=== PATIENT | female | born 1930 | race Caucasian/White ===

== ENCOUNTER → 2016-05-29 | Outpatient (CLI) | payer MEDICARE, BC, OTHER ==
--- NOTE | 2016-05-30 08:53 | ECHOF ---
Referral Reason:Swelling Legs R22.42 I50.9 Heart failure, unspe MEASUREMENTS -------- HEIGHT: 167.6 cm WEIGHT: 63.5 kg BP: IVSd: 1.3 cm (0.6 - 1.1) LVIDd: 3.2 cm (3.9 - 5.3) LVPWd: 1.3 cm (0.6 - 1.1) IVSs: 1.8 cm LVIDs: 1.8 cm LVPWs: 1.6 cm LAESV Index (A-L): 25.25 ml/m Ao Diam: 2.9 cm (2.0 - 3.7) AV Cusp: 1.9 cm (1.5 - 2.6) LA Diam: 3.4 cm (2.7 - 3.8) MV EXCURSION: 14.881 mm (> 18.000) MV EF SLOPE: 40 mm/s (70 - 150) EPSS: 0.7 cm MV E Corey: 0.89 m/s MV DecT: 201 ms MV A Corey: 1.14 m/s MV E/A Ratio: 0.78 AR PHT: 162 ms RAP: 5.00 mmHg RVSP: 20.40 mmHg FINDINGS -------- Sinus rhythm. This was a technically good study. There is mild concentric left ventricular hypertrophy. Overall left ventricular systolic function is normal with, an EF between 55 - 60 %. The right ventricle is normal in size and function. The left atrium is normal in size. The right atrium is normal in size. Aortic valve is trileaflet and is mildly thickened. Trace amount of aortic regurgitation. The mitral valve leaflets are mildly thickened. Mild mitral regurgitation is present. Mild tricuspid regurgitation present. The right ventricular systolic pressure, as measured by Doppler, is 20.40mmHg. Pulmonic valve appears structurally normal. The aortic root size is normal. The pericardium is normal. CONCLUSIONS -------- 1. Sinus rhythm. 2. The mitral valve leaflets are mildly thickened. 3. Mild mitral regurgitation is present. 4. Mild tricuspid regurgitation present. 5. The right ventricular systolic pressure, as measured by Doppler, is 20.40mmHg. 6. Pulmonic valve appears structurally normal. 7. The aortic root size is normal. 8. The pericardium is normal. 9. This was a technically good study. 10. There is mild concentric left ventricular hypertrophy. 11. Overall left ventricular systolic function is normal with, an EF between 55 - 60 %. 12. The right ventricle is normal in size and function. 13. The left atrium is normal in size. 14. The right atrium is normal in size. 15. Aortic valve is trileaflet and is mildly thickened. 16. Trace amount of aortic regurgitation. CLAIMS ANALYST: Radha Ochoa RDCS
== END | disposition home or self-care (01) ==
LOC: RADECHMAIN 13:24
PROVIDERS: ATTEND Internal Medicine
DX: I08.1 Rheumatic disorders of both mitral and tricuspid valves (principal); I50.9 Heart failure, unspecified; Z88.1 Allergy status to other antibiotic agents; Z88.5 Allergy status to narcotic agent; Z88.8 Allergy status to other drugs, medicaments and biological substances
CPT/HCPCS: 93306

== ENCOUNTER 2016-10-26 11:22 | Emergency (ER) | payer MEDICARE, BC, OTHER ==
[2016-10-26 11:31] VITALS: RESP 18
--- NOTE | 2016-10-26 12:05 | ED ---
General Adult HPI - General Chief complaint: Syncope Stated complaint: near syncope Time Seen by Provider: 10/26/16 11:27 Source: patient, RN notes reviewed, old records reviewed Mode of arrival: ambulatory Limitations: no limitations - History of Present Illness Initial comments: This is an 86-year-old female ER for evaluation. Patient is here for evaluation of the patient is getting her hair done and became mildly unresponsive. No change of color, no loss of pulse. Patient has had syncopal close the past but none recently. No headache or chest pain or distress of breath no abdominal pain. Patient is currently asymptomatic, feels well. - Related Data Home Medications Medication Instructions Recorded Confirmed Cholecalciferol [Vitamin D3] 1 tab PO DAILY 07/05/15 10/26/16 Ascorbic Acid [Vitamin C] 500 mg PO DAILY 10/26/16 10/26/16 Cyanocobalamin (Vitamin B-12) 2,500 mcg PO DAILY 10/26/16 10/26/16 [Vitamin B12] DULoxetine HCL [Cymbalta] 30 mg PO BID 10/26/16 10/26/16 Fexofenadine HCl [Hanna Allergy] 180 mg PO DAILY 10/26/16 10/26/16 Folic Acid [Folic Acid] 1 mg PO DAILY 10/26/16 10/26/16 Methotrexate Sodium [Methotrexate] 12.5 mg PO FR 10/26/16 10/26/16 Pyridoxine HCl (Vitamin B6) 100 mg PO DAILY 10/26/16 10/26/16 [Vitamin B-6] Allergies Allergy/AdvReac Type Severity Reaction Status Date / Time No Known Allergies Allergy Verified 10/26/16 11:49 Review of Systems ROS Statement: Those systems with pertinent positive or pertinent negative responses have been documented in the HPI. ROS Other: All systems not noted in ROS Statement are negative. Past Medical History Past Medical History: Rheumatoid Arthritis (RA) Additional Past Medical History / Comment(s): [place] History of Any Multi-Drug Resistant Organisms: None Reported Past Surgical History: No Surgical Hx Reported Past Psychological History: No Psychological Hx Reported Smoking Status: Never smoker Past Alcohol Use History: None Reported Past Drug Use History: None Reported General Exam Limitations: no limitations General appearance: alert, in no apparent distress Head exam: Present: atraumatic, normocephalic, normal inspection Eye exam: Present: normal appearance, PERRL, EOMI. Absent: scleral icterus, conjunctival injection, periorbital swelling ENT exam: Present: normal exam, mucous membranes moist Neck exam: Present: normal inspection. Absent: tenderness, meningismus, lymphadenopathy Respiratory exam: Present: normal lung sounds bilaterally. Absent: respiratory distress, wheezes, rales, rhonchi, stridor Cardiovascular Exam: Present: regular rate, normal rhythm, normal heart sounds. Absent: systolic murmur, diastolic murmur, rubs, gallop, clicks GI/Abdominal exam: Present: soft, normal bowel sounds. Absent: distended, tenderness, guarding, rebound, rigid Extremities exam: Present: normal inspection, full ROM, normal capillary refill. Absent: tenderness, pedal edema, joint swelling, calf tenderness Back exam: Present: normal inspection Neurological exam: Present: alert, oriented X3, CN II-XII intact Psychiatric exam: Present: normal affect, normal mood Skin exam: Present: warm, dry, intact, normal color. Absent: rash Course Vital Signs 10/26/16 11:24 Temperature 98.8 F Pulse Rate 55 L Respiratory 18 Rate Blood Pressure 166/79 O2 Sat by Pulse 98 Oximetry - Reevaluation(s) Reevaluation #1: 10/26/16 13:07 Patient is without syncope here in the ER, no complaints EKG Findings - EKG Comments: EKG Findings:: EKG shows sinus bradycardia rate of 54, MA 126, QRS 80, QTC 413 Medical Decision Making - Medical Decision Making 86 female here for evaluation of syncope versus near syncopal event. Patient lab work is normal, no headache no chest pain or shortness of breath no bowel pain. Patient can be discharged home - Lab Data Result diagrams: 10/26/16 11:38 Lab Results 10/26/16 10/26/16 Range/Units 11:38 11:38 WBC 4.0 (3.8-10.6) k/uL RBC 4.42 (3.80-5.40) m/uL Hgb 12.8 (11.4-16.0) gm/dL Hct 39.1 (34.0-46.0) % MCV 88.5 (80.0-100.0) fL MCH 29.0 (25.0-35.0) pg MCHC 32.8 (31.0-37.0) g/dL RDW 15.7 H (11.5-15.5) % Plt Count 160 (150-450) k/uL Neutrophils % 58 % Lymphocytes % 29 % Monocytes % 7 % Eosinophils % 1 % Basophils % 1 % Neutrophils # 2.3 (1.3-7.7) k/uL Lymphocytes # 1.2 (1.0-4.8) k/uL Monocytes # 0.3 (0-1.0) k/uL Eosinophils # 0.1 (0-0.7) k/uL Basophils # 0.0 (0-0.2) k/uL PT 10.7 (9.0-12.0) sec INR 1.1 (<1.2) APTT 23.7 (22.0-30.0) sec D-Dimer 0.43 (<0.60) mg/L FEU - Radiology Data Radiology results: report reviewed (Chest x-ray is negative for acute disease), image reviewed Disposition Clinical Impression: Vasovagal syncope, Syncope Disposition: HOME SELF-CARE Condition: Good Instructions: Syncope (ED) Referrals: Kait Pettit MD [Primary Care Provider] - 1-2 days
[2016-10-26] MEDS ORDERED: SODIUM CHLORIDE 0.9% 1,000 ML IV STA (12:11)
[2016-10-26 12:24] LABS: Basophils % (A) 1 %; CH 29.4; CHCM 33.4; Eosinophils # (A) 0.1 k/uL (0-0.7); Eosinophils % (A) 1 %; HCT 39.1 % (34.0-46.0); HDW 2.88; HGB 12.8 gm/dL (11.4-16.0); Luc # (Auto) 0.17; Luc % (Auto) 4; Lymphocytes # (A) 1.2 k/uL (1.0-4.8); Lymphocytes % (A) 29 %; MCHC 32.8 g/dL (31.0-37.0); MCV 88.5 fL (80.0-100.0); Mean Platelet Volume 8.9; Monocytes # (A) 0.3 k/uL (0-1.0); Monocytes % (A) 7 %; Neutrophils # (A) 2.3 k/uL (1.3-7.7); Neutrophils % (A) 58 %; RBC 4.42 m/uL (3.80-5.40); RDW 15.7 % (11.5-15.5); WBC (Perox) 3.92
--- NOTE | 2016-10-26 12:32 | XR ---
EXAMINATION TYPE: XR chest 2V DATE OF EXAM: 10/26/2016 COMPARISON: NONE TECHNIQUE: PA and lateral views submitted. HISTORY: Weakness FINDINGS: The lungs are clear and there is no pneumothorax, pleural effusion, or focal pneumonia. Diffuse hyp erinflation noted. Diffuse osteopenia and arthropathy shoulders. Degenerative change of the spine. IMPRESSION: 1. No acute process. Correlate for COPD.
[2016-10-26 12:45] LABS: INR 1.1 (<1.2); Partial Thromboplastin Time 23.7 sec (22.0-30.0); Prothrombin Time 10.7 sec (9.0-12.0)
[2016-10-26 13:09] LABS: Creatine Kinase 53 U/L (30-135)
[2016-10-26 13:20] LABS: Creatine Kinase MB 1.5 ng/mL (0.0-2.4); Troponin I <0.012 ng/mL (0.000-0.034)
[2016-10-26 13:21] LABS: ALT 22 U/L (9-52); AST 39 U/L (14-36); Alkaline Phosphatase 97 U/L (38-126); Anion Gap 10 mmol/L; Blood Urea Nitrogen 14 mg/dL (7-17); Calcium 9.4 mg/dL (8.4-10.2); Carbon Dioxide 23 mmol/L (22-30); Chloride 102 mmol/L (98-107); Glucose 97 mg/dL (74-99); Magnesium 1.8 mg/dL (1.6-2.3); Non-African American GFR(MDRD) >60 (>60 ml/min/1.73 sqM); Phosphorous 4.1 mg/dL (2.5-4.5); Sodium 135 mmol/L (137-145); Total Bilirubin 0.5 mg/dL (0.2-1.3); Total Protein 7.2 g/dL (6.3-8.2)
[2016-10-26 13:34] LABS: Potassium 4.3 mmol/L (3.5-5.1)
[2016-10-26 14:19] VITALS: BP 176/80; PULSE 61; TEMP 98.2
== END 2016-10-26 14:35 | disposition home or self-care (01) ==
LOC: EC 11:22
DX: R55 Syncope and collapse (principal); M06.9 Rheumatoid arthritis, unspecified; Z79.899 Other long term (current) drug therapy
CPT/HCPCS: 36415; 71020; 80053; 82550; 82553; 83735; 84100; 84443; 84484; 85025; 85379; 85610; 85730; 96360; 99284

== ENCOUNTER → 2017-05-27 | Outpatient (CLI) | payer MEDICARE, BC, OTHER ==
--- NOTE | 2017-05-27 12:47 | US ---
EXAMINATION TYPE: US venous doppler duplex LE DATE OF EXAM: 05/27/2017 12:30 PM COMPARISON: NONE CLINICAL HISTORY: M79.622 M79.661 PAIN KIRK LOWER LIMBS,R22.42 R2241 SWELLING. Patient had difficulty adducting her legs. SIDE PERFORMED: Bilateral TECHNIQUE: The lower extremity deep venous system is examined utilizing real time linear array sonog olive with graded compression, doppler sonography and color-flow sonography. VESSELS IMAGED: External Iliac Vein (EIV) Common Femoral Vein Deep Femoral Vein Greater Saphenous Vein * Femoral Vein Popliteal Vein Small Saphenous Vein * Proximal Calf Veins (* superficial vessels) Right Leg: Negative for DVT Left Leg: Negative for DVT Grayscale, color doppler, spectral doppler imaging performed of the deep veins of the bilateral lower extremities. There is normal flow, compressibility, and vascular waveforms. IMPRESSION: No ultrasound evidence for acute DVT in bilateral lower extremities.
== END | disposition home or self-care (01) ==
LOC: RADUSWWP 11:48
PROVIDERS: ATTEND Internal Medicine
DX: R22.43 Localized swelling, mass and lump, lower limb, bilateral (principal); M79.662 Pain in left lower leg; M79.661 Pain in right lower leg
CPT/HCPCS: 93970

== ENCOUNTER → 2017-09-24 | Outpatient (CLI) | payer MEDICARE, BC, OTHER ==
--- NOTE | 2017-09-24 08:50 | US ---
EXAMINATION TYPE: US abdomen limited DATE OF EXAM: 09/24/2017 COMPARISON: NONE CLINICAL HISTORY: R16.1 splenomegaly. EXAM MEASUREMENTS: Spleen: 13.3 cm Left Kidney: 9.9 x 2.9 x 3.7 cm 1. Spleen: upper limits of normal. Solitary cystic 0.9 x 0.7 x 0.8 cm splenic lesion is seen with inc reased through transmission and no vascularity. 2. Left Kidney: no hydro or masses seen IMPRESSION: Spleen is upper limits of normal in size and contains a solitary cystic subcentimeter les ion, highly favored to be benign
== END | disposition home or self-care (01) ==
LOC: RADUSWWP 08:10
PROVIDERS: ATTEND Internal Medicine Hematology & Oncology
DX: D73.4 Cyst of spleen (principal)
CPT/HCPCS: 76705

== ENCOUNTER 2017-10-12 06:42 | Day surgery (SDC) | payer MEDICARE, BC, OTHER ==
[2017-10-07 10:05] VITALS: BMI 23.7
[~2017-10-12 06:42] MED LIST: LACTATED RINGERS 1,000 ML IV SCH; LIDOCAINE 1% 20 ML VIAL (10MG/ML) FOR IV START INTRADERMA PRN; MIDAZOLAM 2 MG/2 ML VIAL IV PRN
[2017-10-12 07:19] VITALS: TEMP 98.4
[2017-10-12] MEDS ORDERED: PROPOFOL 10 MG/ML 20 ML VIAL IV ONE (07:28)
[2017-10-12] MEDS ORDERED: LIDOCAINE 1% INJ 10MG/ML (20 ML MDV) ONE (07:28)
[2017-10-12 08:15] LABS: HCT 37.6 % (34.0-46.0); HGB 12.2 gm/dL (11.4-16.0); MCH 25.4 pg (25.0-35.0); MCHC 32.5 g/dL (31.0-37.0); MCV 78.2 fL (80.0-100.0); Mean Platelet Volume 8.5; Platelet Count 145 k/uL (150-450); RDW 14.7 % (11.5-15.5)
[2017-10-12 08:18] LABS: WBC 1.9 k/uL (3.8-10.6)
[2017-10-12 08:22] VITALS: BP 164/80; PULSE 53; RESP 18
--- NOTE | 2017-10-12 08:58 | PCN ---
PROCEDURE NOTE DATE OF PROCEDURE: 10/12/2017. PREOPERATIVE DIAGNOSIS: Leukopenia. POSTOPERATIVE DIAGNOSIS: Leukopenia. ANESTHESIA: Local with IV systemic sedation. DETAILS: Utilizing sterile technique, the skin overlying the right iliac crest was prepared with Betadine and alcohol. After adequate sterile draping, systemic sedation and local anesthesia with 1% lidocaine, a size 11, 4-inch BURLESQUICEOUSshidi needle was utilized to access the periosteum with ease. A total of 16 mL of aspirate and crushed 4 mm bone core biopsies were obtained. The patient tolerated the procedure well. There was no immediate procedure related complication. TOTAL BLOOD LOSS: Less than 1 mL. RESULTS: Pending. MMODL / IJN: [id number] /
[2017-10-12 09:44] LABS: Anisocytosis (M) Present; Lymphocytes # (M) 0.78 k/uL (1.0-4.8); Monocytes # (M) 0.27 k/uL (0-1.0); Neutrophils # (M) 0.86 k/uL (1.3-7.7); Neutrophils % (M) 45 %; Nucleated Red Blood Cells 0 /100 WBC (0-0); Poikilocytosis (M) Present; Total Cells Counted 100
== END 2017-10-12 08:28 | disposition home or self-care (01) ==
LOC: OR 06:42
PROVIDERS: ATTEND Internal Medicine Hematology & Oncology
DX: D70.9 Neutropenia, unspecified (principal); D72.810 Lymphocytopenia; D47.3 Essential (hemorrhagic) thrombocythemia; M06.9 Rheumatoid arthritis, unspecified; Z87.891 Personal history of nicotine dependence; Z09 Encounter for follow-up examination after completed treatment for conditions other than malignant neoplasm; Z88.8 Allergy status to other drugs, medicaments and biological substances
CPT/HCPCS: 85025; 38222; J2001; J2704

== ENCOUNTER 2018-03-21 22:17 | Emergency (ER) | payer MEDICARE, BC, OTHER ==
[2018-03-21 22:26] VITALS: RESP 16
[2018-03-21] MEDS ORDERED: ACETAMINOPHEN TAB 325 MG TAB PO STA (23:28)
--- NOTE | 2018-03-22 00:40 | XR ---
EXAMINATION TYPE: XR ankle complete LT DATE OF EXAM: 03/21/2018 COMPARISON: NONE HISTORY: Ankle pain TECHNIQUE: 3 views FINDINGS: Ankle mortise is anatomic. There is moderate plantar and Achilles calcaneal spur formation. I see no definite fracture nor dislocation. There are some mild spurring at the distal fibula. IMPRESSION: No acute bony abnormality.
--- NOTE | 2018-03-22 00:52 | XR ---
EXAMINATION TYPE: XR foot complete LT DATE OF EXAM: 03/21/2018 COMPARISON: NONE HISTORY: Foot pain TECHNIQUE: 3 views FINDINGS: There are moderate plantar and Achilles calcaneal spurs. Metatarsals are intact. I see no f racture nor dislocation. There are no erosions. IMPRESSION: Calcaneal spurring. No fracture seen.
--- NOTE | 2018-03-22 01:13 | ED ---
Fall HPI - General Chief Complaint: Fall Stated Complaint: Fall, ankle pain Time Seen by Provider: 03/21/18 23:01 Source: patient, family Mode of arrival: wheelchair - History of Present Illness Initial Comments: 87-year-old female patient presents to the emergency department today for evaluation of left foot and ankle pain. Patient states around 9:30 this evening she was stepping down into her living room where there are 3 stairs. Patient states she has rheumatoid arthritis and occasionally has difficulty navigating stairs. Patient states that she tripped on the last one twisting the left ankle. States that she did fall landing on her left side. She denies hitting her head or losing consciousness during the fall. She denies any injury to the hip or elbow. States that she did have increased pain while standing on the foot. She denies any numbness or tingling to the foot. Denies any previous injury to the foot. Patient denies any headache, neck pain, back pain, chest pain, shortness of breath, dizziness, weakness, abdominal pain, nausea, vomiting, or difficulties with bowel movements or urination. - Related Data Home Medications Medication Instructions Recorded Confirmed Ascorbic Acid [Vitamin C] 500 mg PO DAILY 10/26/16 03/21/18 Cyanocobalamin (Vitamin B-12) 2,500 mcg PO DAILY 10/26/16 03/21/18 [Vitamin B12] Folic Acid 1 mg PO DAILY 10/26/16 03/21/18 Pyridoxine HCl (Vitamin B6) 100 mg PO DAILY 10/26/16 03/21/18 [Vitamin B-6] Calcium Carbonate [Calcium] 600 mg PO DAILY 10/07/17 03/21/18 Cholecalciferol [Vitamin D3] 1,000 unit PO DAILY 10/07/17 03/21/18 Acetaminophen [Tylenol Arthritis] 650 mg PO DAILY PRN 03/21/18 03/21/18 DULoxetine HCL [Cymbalta] 30 mg PO HS 03/21/18 03/21/18 Allergies Allergy/AdvReac Type Severity Reaction Status Date / Time fexofenadine [From Hanna] Allergy fainting Verified 03/21/18 23:20 Review of Systems ROS Statement: Those systems with pertinent positive or pertinent negative responses have been documented in the HPI. ROS Other: All systems not noted in ROS Statement are negative. Past Medical History Past Medical History: Rheumatoid Arthritis (RA) Additional Past Medical History / Comment(s): [place],"immune system low", hx previous injury to right wrist, has "bladder ring" pessary History of Any Multi-Drug Resistant Organisms: None Reported Past Surgical History: Appendectomy Past Anesthesia/Blood Transfusion Reactions: No Reported Reaction Past Psychological History: Anxiety, Depression Smoking Status: Never smoker Past Alcohol Use History: None Reported Past Drug Use History: None Reported - Past Family History Mother Family Medical History: No Reported History General Exam Limitations: no limitations General appearance: alert, in no apparent distress, other (Physical well- developed, well-nourished elderly female patient in no acute distress. Vital signs upon presentation are temperature 98.0F, pulse 64, respirations 16, blood pressure 167/84, pulse ox 98% on room air.) Eye exam: Present: normal appearance, PERRL, EOMI. Absent: scleral icterus, conjunctival injection, periorbital swelling ENT exam: Present: normal exam, normal oropharynx, mucous membranes moist Neck exam: Present: normal inspection, full ROM, other (Nontender, no step-off, no deformity to firm midline palpation of the posterior cervical spine. Full range of motion without pain or limitation.). Absent: tenderness, meningismus, lymphadenopathy Respiratory exam: Present: normal lung sounds bilaterally. Absent: respiratory distress, wheezes, rales, rhonchi, stridor Cardiovascular Exam: Present: regular rate, normal rhythm, normal heart sounds. Absent: systolic murmur, diastolic murmur, rubs, gallop, clicks GI/Abdominal exam: Present: soft, normal bowel sounds. Absent: distended, tenderness, guarding, rebound, rigid Extremities exam: Present: full ROM, tenderness (Tenderness to the left foot over the fifth metatarsal, mild tenderness or on the left lateral malleolus), normal capillary refill, other (Skin to the left foot is pink, warm, and dry. Cap refills less than 3 seconds. Pedal posttibial pulses are 2+ and equal bilaterally. No soft tissue swelling noted.). Absent: normal inspection, pedal edema, joint swelling, calf tenderness Back exam: Present: normal inspection, other (Nontender, no step-off, no deformity to firm midline palpation of the thoracic and lumbar vertebrae. Full range of motion without pain or limitation.). Absent: vertebral tenderness Neurological exam: Present: alert, oriented X3, CN II-XII intact Psychiatric exam: Present: normal affect, normal mood Skin exam: Present: warm, dry, intact, normal color. Absent: rash Course Vital Signs 03/21/18 03/22/18 22:21 01:36 Temperature 98 F 97.8 F Pulse Rate 64 52 L Respiratory 16 16 Rate Blood Pressure 167/84 169/93 O2 Sat by Pulse 98 95 Oximetry Medical Decision Making - Medical Decision Making 87-year-old female patient presents to the emergency department today for evaluation of left foot pain after experiencing a chipped down a couple stairs. Physical examination did reveal some tenderness over the left fifth metatarsal and the left lateral malleolus. Remainder of findings were unremarkable. X-ray of the left foot and ankle were obtained and showed no acute abnormalities. Return parameters were discussed in detail. He verbalizes understanding and agrees with this plan. - Radiology Data Radiology results: report reviewed, image reviewed 3 views of the left foot are obtained. Report was reviewed in its entirety. Impression by Dr. Forbes shows calcaneal spurring. No fracture seen. 3 views of the left ankle are obtained. Report was reviewed in its entirety. Impression by Dr. Forbes shows no acute bony abnormality. Disposition Clinical Impression: Sprain of left foot Disposition: HOME SELF-CARE Condition: Good Instructions (If sedation given, give patient instructions): Foot Sprain (ED) Additional Instructions: Rest, ice, elevate the foot. Use Joe wrap for comfort and support. Follow-up with the primary care physician for recheck in 1-2 days. Have repeat x-rays performed in 7-10 days if pain symptoms persist. Return immediately for any new , worsening, or concerning symptoms Is patient prescribed a controlled substance at d/c from ED?: No Referrals: Kait Pettit MD [Primary Care Provider] - 1-2 days Time of Disposition: 01:12
[2018-03-22 01:44] VITALS: BP 169/93; PULSE 52; TEMP 97.8
== END 2018-03-22 01:43 | disposition home or self-care (01) ==
LOC: EC 22:17
DX: S93.602A Unspecified sprain of left foot, initial encounter (principal); M77.32 Calcaneal spur, left foot; F41.9 Anxiety disorder, unspecified; F32.9 Major depressive disorder, single episode, unspecified; Z79.899 Other long term (current) drug therapy; Z88.8 Allergy status to other drugs, medicaments and biological substances; W10.9XXA Fall (on) (from) unspecified stairs and steps, initial encounter; Y92.009 Unspecified place in unspecified non-institutional (private) residence as the place of occurrence of the external cause
CPT/HCPCS: 99283

== ENCOUNTER 2019-08-17 07:55 | Inpatient (IN) | payer MEDICARE, BC, OTHER ==
[2019-08-17] MEDS ORDERED: SODIUM CHLORIDE 0.9% 500 ML 500 ML IV STA (08:12)
--- NOTE | 2019-08-17 08:16 | ED ---
General Adult HPI - General Chief complaint: Dizziness Stated complaint: Dizziness Time Seen by Provider: 08/17/19 07:57 Source: patient, EMS, RN notes reviewed Mode of arrival: EMS Limitations: no limitations - History of Present Illness Initial comments: Patient is a pleasant 89-year-old female presenting to the emergency Department with lightheadedness. Onset of symptoms was when she got out of bed this morning. Patient felt very lightheaded. Patient use the restroom and still felt lightheaded. Patient states symptoms have significant family improved and are essentially resolved at this time. Patient states she did have episode briefly yesterday. Patient denies any spinning type sensation. No confusion or speech problems. No isolated area of weakness. No coordination difficulty. - Related Data Home Medications Medication Instructions Recorded Confirmed Ascorbic Acid [Vitamin C] 500 mg PO DAILY 10/26/16 03/21/18 Cyanocobalamin (Vitamin B-12) 2,500 mcg PO DAILY 10/26/16 03/21/18 [Vitamin B12] Folic Acid 1 mg PO DAILY 10/26/16 03/21/18 Pyridoxine HCl (Vitamin B6) 100 mg PO DAILY 10/26/16 03/21/18 [Vitamin B-6] Calcium Carbonate [Calcium] 600 mg PO DAILY 10/07/17 03/21/18 Cholecalciferol [Vitamin D3] 1,000 unit PO DAILY 10/07/17 03/21/18 Acetaminophen [Tylenol Arthritis] 650 mg PO DAILY PRN 03/21/18 03/21/18 DULoxetine HCL [Cymbalta] 30 mg PO HS 03/21/18 03/21/18 Allergies Allergy/AdvReac Type Severity Reaction Status Date / Time fexofenadine [From Hnana] Allergy fainting Verified 03/21/18 23:20 Review of Systems ROS Statement: Those systems with pertinent positive or pertinent negative responses have been documented in the HPI. ROS Other: All systems not noted in ROS Statement are negative. Constitutional: Denies: fever Eyes: Denies: eye pain ENT: Denies: ear pain Respiratory: Denies: cough Cardiovascular: Denies: chest pain Endocrine: Denies: fatigue Gastrointestinal: Denies: abdominal pain Genitourinary: Denies: dysuria Musculoskeletal: Denies: back pain Neurological: Denies: headache, weakness, confusion Past Medical History Past Medical History: Rheumatoid Arthritis (RA) Additional Past Medical History / Comment(s): [place],"immune system low", hx previous injury to right wrist, has "bladder ring" pessary History of Any Multi-Drug Resistant Organisms: None Reported Past Surgical History: Appendectomy Past Anesthesia/Blood Transfusion Reactions: No Reported Reaction Past Psychological History: Anxiety, Depression Smoking Status: Never smoker Past Alcohol Use History: None Reported Past Drug Use History: None Reported - Past Family History Mother Family Medical History: No Reported History General Exam Limitations: no limitations General appearance: alert, in no apparent distress Head exam: Present: atraumatic, normocephalic Eye exam: Present: normal appearance, PERRL, EOMI. Absent: nystagmus ENT exam: Present: normal oropharynx, TM's normal bilaterally Neck exam: Present: normal inspection Respiratory exam: Present: normal lung sounds bilaterally Cardiovascular Exam: Present: regular rate, normal rhythm GI/Abdominal exam: Present: soft. Absent: tenderness Extremities exam: Present: normal inspection Neurological exam: Present: alert, oriented X3, CN II-XII intact. Absent: motor sensory deficit Expanded Neurological exam: Present: protecting the airway Patient oriented to: Present: person, place, time Speech: Present: fluid speech Cranial nerves: EOM's Intact: Normal Motor strength exam: RUE: 5, LUE: 5, RLE: 5, LLE: 5 Eye Response: (4) open spontaneously Motor Response: (6) obeys commands Verbal Response: (5) oriented Psychiatric exam: Present: normal affect, normal mood Skin exam: Present: normal color Course Vital Signs 08/17/19 08/17/19 08/17/19 07:59 09:43 10:06 Temperature 98.3 F Pulse Rate 64 58 L Pulse Rate [ 61 Right Sitting] Pulse Rate [ 66 Right Standing] Pulse Rate [ 58 L Right Supine] Respiratory 20 18 18 Rate Blood Pressure 177/93 153/82 Blood Pressure 175/97 [Left Arm Sitting] Blood Pressure 192/97 [Left Arm Standing] Blood Pressure 156/83 [Left Arm Supine] O2 Sat by Pulse 96 97 97 Oximetry 08/17/19 11:10 Temperature Pulse Rate 56 L Pulse Rate [ Right Sitting] Pulse Rate [ Right Standing] Pulse Rate [ Right Supine] Respiratory 14 Rate Blood Pressure 130/67 Blood Pressure [Left Arm Sitting] Blood Pressure [Left Arm Standing] Blood Pressure [Left Arm Supine] O2 Sat by Pulse 96 Oximetry EKG Findings - EKG Comments: EKG Findings:: Sinus rhythm at 60. RI 128. QRS 70. QT 424. QTC 424. Normal axis. Normal QRS. Nonspecific ST-T. Medical Decision Making - Medical Decision Making Patient still symptomatic with getting up. Patient does not feel comfortable with discharge home. Patient updated on results and plan. Case was discussed with Dr. Donald, who will admit covering for Dr. sandoval - Lab Data Result diagrams: 08/17/19 08:05 08/17/19 08:05 Lab Results 08/17/19 08/17/19 08/17/19 Range/Units 08:05 08:05 10:23 WBC 2.1 L (3.8-10.6) k/uL RBC 4.44 (3.80-5.40) m/uL Hgb 13.0 (11.4-16.0) gm/dL Hct 37.8 (34.0-46.0) % MCV 85.1 (80.0-100.0) fL MCH 29.2 (25.0-35.0) pg MCHC 34.3 (31.0-37.0) g/dL RDW 13.8 (11.5-15.5) % Plt Count 124 L (150-450) k/uL Neutrophils % (Manual) 41 % Lymphocytes % (Manual) 44 % Monocytes % (Manual) 13 % Eosinophils % (Manual) 1 % Basophils % (Manual) 1 % Neutrophils # (Manual) 0.86 L (1.3-7.7) k/uL Lymphocytes # (Manual) 0.92 L (1.0-4.8) k/uL Monocytes # (Manual) 0.27 (0-1.0) k/uL Eosinophils # (Manual) 0.02 (0-0.7) k/uL Basophils # (Manual) 0.02 (0-0.2) k/uL Nucleated RBCs 0 (0-0) /100 WBC Manual Slide Review Performed Sodium 139 (137-145) mmol/L Potassium 3.6 (3.5-5.1) mmol/L Chloride 106 (98-107) mmol/L Carbon Dioxide 27 (22-30) mmol/L Anion Gap 6 mmol/L BUN 19 H (7-17) mg/dL Creatinine 0.67 (0.52-1.04) mg/dL Est GFR (CKD-EPI)AfAm >90 (>60 ml/min/1.73 sqM) Est GFR (CKD-EPI)NonAf 79 (>60 ml/min/1.73 sqM) Glucose 93 (74-99) mg/dL Calcium 9.1 (8.4-10.2) mg/dL Total Bilirubin 0.4 (0.2-1.3) mg/dL AST 24 (14-36) U/L ALT 9 (4-34) U/L Alkaline Phosphatase 73 (38-126) U/L Total Protein 7.0 (6.3-8.2) g/dL Albumin 3.7 (3.5-5.0) g/dL Urine Color Light Yellow Urine Appearance Cloudy H (Clear) Urine pH 7.0 (5.0-8.0) Ur Specific [place] 1.011 (1.001-1.035) Urine Protein Negative (Negative) Urine Glucose (UA) Negative (Negative) Urine Ketones Negative (Negative) Urine Blood Small H (Negative) Urine Nitrite Negative (Negative) Urine Bilirubin Negative (Negative) Urine Urobilinogen <2.0 (<2.0) mg/dL Ur Leukocyte Esterase Small H (Negative) Urine RBC 10 H (0-5) /hpf Urine WBC 9 H (0-5) /hpf Ur Squamous Epith Cells 45 H (0-4) /hpf Urine Bacteria Moderate H (None) /hpf Urine Mucus Rare H (None) /hpf Disposition Clinical Impression: Near syncope Disposition: ADMITTED IP TO THIS HOSP Is patient prescribed a controlled substance at d/c from ED?: No Referrals: Kait Pettit MD [Primary Care Provider] - 1-2 days Decision Time: 11:56
[2019-08-17 08:34] LABS: HCT 37.8 % (34.0-46.0); MCH 29.2 pg (25.0-35.0); MCHC 34.3 g/dL (31.0-37.0); MCV 85.1 fL (80.0-100.0); Mean Platelet Volume 8.2; Platelet Count 124 k/uL (150-450); RBC 4.44 m/uL (3.80-5.40); RDW 13.8 % (11.5-15.5); WBC 2.1 k/uL (3.8-10.6)
[2019-08-17 08:36] LABS: ALT 9 U/L (4-34); AST 24 U/L (14-36); African American GFR (CKD) >90 (>60 ml/min/1.73 sqM); Albumin 3.7 g/dL (3.5-5.0); Alkaline Phosphatase 73 U/L (38-126); Anion Gap 6 mmol/L; Blood Urea Nitrogen 19 mg/dL (7-17); Calcium 9.1 mg/dL (8.4-10.2); Carbon Dioxide 27 mmol/L (22-30); Chloride 106 mmol/L (98-107); Glucose 93 mg/dL (74-99); Non-African American GFR(CKD) 79 (>60 ml/min/1.73 sqM); Potassium 3.6 mmol/L (3.5-5.1); Sodium 139 mmol/L (137-145); Total Bilirubin 0.4 mg/dL (0.2-1.3)
[2019-08-17 09:16] LABS: Basophils # (M) 0.02 k/uL (0-0.2); Eosinophils # (M) 0.02 k/uL (0-0.7); Lymphocytes # (M) 0.92 k/uL (1.0-4.8); Monocytes # (M) 0.27 k/uL (0-1.0); Neutrophils # (M) 0.86 k/uL (1.3-7.7); Neutrophils % (M) 41 %; Nucleated Red Blood Cells 0 /100 WBC (0-0); Total Cells Counted 100
[2019-08-17 10:48] LABS: Appearance,Urine Cloudy (Clear); Bacteria,Urine Moderate /hpf; Bilirubin,Urine Negative (Negative); Blood,Urine Small (Negative); Color,Urine Light Yellow; Glucose,Urine (UA) Negative (Negative); Ketones,Urine Negative (Negative); Leukocyte Esterase,Urine Small (Negative); Mucus,Urine Rare /hpf; Nitrite,Urine Negative (Negative); Protein,Urine Negative (Negative); RBC,Urine 10 /hpf (0-5); Specific Gravity,Urine 1.011 (1.001-1.035); Squamous Epithelial Cell,Urine 45 /hpf (0-4); Urobilinogen,Urine <2.0 mg/dL (<2.0); WBC,Urine 9 /hpf (0-5)
[2019-08-17] MEDS ORDERED: METOCLOPRAMIDE 5 MG/ML 2 ML VIAL IVP STA (11:35)
[2019-08-17] MEDS ORDERED: NALOXONE 0.4 MG/ML 1 ML VIAL IV PRN (11:57)
[2019-08-17] MEDS: SODIUM CHLORIDE 0.9% 1,000 ML IV SCH (12:19)
--- NOTE | 2019-08-17 13:02 | CT ---
EXAMINATION TYPE: CT brain wo con DATE OF EXAM: 08/17/2019 COMPARISON: None HISTORY: 89-year-old female Syncope TECHNIQUE: Examination was done in axial plane without intravenous contrast. Coronal and sagittal r econstructions performed. CT DLP: 1011.4 mGycm Automated exposure control for dose reduction was used. FINDINGS: There is no evidence of acute intracranial hemorrhage, acute ischemic changes, mass, mass-effect, or extra-axial fluid collection. There is no effacement of cerebral sulci or basal subarachnoid cister ns. Moderate central cerebral atrophy with secondary prominence to the ventricular system. Forbes ratio ca lculated at 0.35. Moderate patchy white matter hypodensities in both cerebral hemispheres. There is no midline shift. Fall-white matter distinction is preserved. Paranasal sinuses and mastoid air cells are well pneumatized. Orbits and globes appear intact. IMPRESSION: 1. No acute intracranial abnormality seen. Mild chronic changes of chronic small vessel ischemic dise ase. 2. However, there is mild hydrocephalus. This may be secondary to ex vacuo enlargement from central c erebral atrophy. Correlate to exclude a component of NPH.
[2019-08-17] MEDS: ASCORBIC ACID 500 MG TAB PO SCH (15:15)
--- NOTE | 2019-08-17 23:50 | P.HPIM ---
History of Present Illness H&P Date: 08/17/19 Chief Complaint: ner syncope Patient is a 89-year-old female with a known history of rheumatoid arthritis currently on prednisone, history of bladder ring pessary, leukemia with low white count, anxiety/depression presents to ER with complaints of lightheadedness and near syncope. Patient states that she got out of bed this morning and went to use the restroom where she felt very shaky and lightheaded. Denied any chest pain or shortness of breath. No nausea vomiting or abdominal pain or diarrhea. Patient symptoms improved over the next few minutes. Patient denies any fall or head injury. Denied any focal weakness. No confusion. Patient was brought to the hospital by her . Patient says that she felt like she was getting urinary tract infection. And is supposed to follow-up with her primary care physician in the next couple of days. No fever no chills. Denied any frequency of urination. [place] slight urgency. No dysuria. No abdominal pain. Denied any recent illnesses or sick contacts. No recent travel. CT head showed no acute intracranial abnormality. Mild chronic changes of chronic small vessel ischemic disease. However there is mild hydrocephalus. This may be secondary to ex vacuo enlargement from central cerebral atrophy. Correlate to exclude component of NPH. Laboratory data showed WBC 2.1, hemoglobin 13.0, platelets 124 BUN 19 and creatinine 0.67 Urinalysis showed cloudy with small leukocyte Estrace RBCs 10 and WBCs 9, septal cells 45 Patient is orthostatically positive on admission. Review of Systems Constitutional: Patient denies any fever or chills . No generalized weakness or weight loss. Abdomen: Patient denied nausea vomiting and diarrhea and abdominal pain. Cardiovascular: Patient denies any chest pain or short of breath no palpitation s. Respiratory: patient denied any cough is from production. No shortness of breath Neurologic: Patient denied any numbness or tingling headache. Near syncope. Lightheadedness. Musculoskeletal: Patient denies any complaints of joint swelling or deformity. Skin: Negative Psychiatric: Negative Endocrine: No heat or cold intolerance. No recent weight gain. Genitourinary: No dysuria or hematuria. All other 14 point ROS negative except the above Past Medical History Past Medical History: Rheumatoid Arthritis (RA) Additional Past Medical History / Comment(s): [place],"immune system low", hx prev ious injury to right wrist, has "bladder ring" pessary History of Any Multi-Drug Resistant Organisms: None Reported Past Surgical History: Appendectomy Past Anesthesia/Blood Transfusion Reactions: No Reported Reaction Past Psychological History: Anxiety, Depression Smoking Status: Never smoker Past Alcohol Use History: None Reported Past Drug Use History: None Reported - Past Family History Mother Family Medical History: No Reported History Father History Unknown: Yes Additional Family Medical History / Comment(s): Pt did not know her father, he left when she was young. Medications and Allergies Home Medications Medication Instructions Recorded Confirmed Type Ascorbic Acid [Vitamin C] 500 mg PO DAILY 10/26/16 08/17/19 History Folic Acid 1 mg PO DAILY 10/26/16 08/17/19 History Pyridoxine HCl (Vitamin B6) 100 mg PO DAILY 10/26/16 08/17/19 History [Vitamin B-6] Cholecalciferol [Vitamin D3] 1,000 unit PO DAILY 10/07/17 08/17/19 History Ascorbic Acid [Vitamin C] 500 mg PO DAILY 08/17/19 08/17/19 History Cyanocobalamin [Vitamin B-12] 500 mcg PO DAILY 08/17/19 08/17/19 History FLUoxetine HCL [PROzac] 10 mg PO MOWEFR 08/17/19 08/17/19 History Lidocaine HCl [Aspercreme] 1 applic TOPICAL DAILY PRN 08/17/19 08/17/19 History predniSONE 5 mg PO DAILY 08/17/19 08/17/19 History Allergies Allergy/AdvReac Type Severity Reaction Status Date / Time fexofenadine [From Hanna] AdvReac fainting Verified 08/17/19 11:59 Physical Exam Vitals: Vital Signs Temp Pulse Pulse Pulse Pulse Resp BP 08/17/19 12:08 97.8 F 57 L 16 141/77 08/17/19 11:10 56 L 14 130/67 08/17/19 10:06 61 66 58 L 18 08/17/19 09:43 58 L 18 153/82 08/17/19 07:59 98.3 F 64 20 177/93 BP BP BP Pulse Ox 08/17/19 12:08 98 08/17/19 11:10 96 08/17/19 10:06 175/97 192/97 156/83 97 08/17/19 09:43 97 06/18/20 07:59 96 Intake and Output 08/16/19 08/17/19 08/17/19 22:59 06:59 14:59 Other: Weight 140 kg PHYSICAL EXAMINATION: Patient is lying in the bed comfortably, no acute distress, awake alert and oriented.. HEENT: Normocephalic. Neck is supple. Pupils reactive. Nostrils clear. Oral cavity is moist. Ears reveal no drainage. Neck reveals no JVD, carotid bruits, or thyromegaly. CHEST EXAMINATION: Trachea is central. Symmetrical expansion. Lung lópez clear to auscultation and percussion. CARDIAC: Normal S1, S2 with no gallops. No murmurs ABDOMEN: Soft. Bowel sounds normal. No organomegaly. No abdominal bruits. Extremities: reveal no edema. No clubbing or cyanosis Neurologically awake, alert, oriented x3 with well-coordinated movements. No focal deficits noted Skin: No rash or skin lesions. Psychiatric: Coperative. Nonsuicidal Musculoskeletal: No joint swelling or deformity. Normal range of motion. Results CBC & Chem 7: 08/17/19 08:05 08/17/19 08:05 Labs: Abnormal Lab Results - Last 24 Hours (Table) 08/17/19 08/17/19 08/17/19 Range/Units 08:05 08:05 10:23 WBC 2.1 L (3.8-10.6) k/uL Plt Count 124 L (150-450) k/uL Neutrophils # (Manual) 0.86 L (1.3-7.7) k/uL Lymphocytes # (Manual) 0.92 L (1.0-4.8) k/uL BUN 19 H (7-17) mg/dL Urine Appearance Cloudy H (Clear) Urine Blood Small H (Negative) Ur Leukocyte Esterase Small H (Negative) Urine RBC 10 H (0-5) /hpf Urine WBC 9 H (0-5) /hpf Ur Squamous Epith Cells 45 H (0-4) /hpf Urine Bacteria Moderate H (None) /hpf Urine Mucus Rare H (None) /hpf Thrombosis Risk Factor Assmnt - DVT/VTE Prophylaxis DVT/VTE Prophylaxis: Pharmacologic Prophylaxis ordered Assessment and Plan Assessment: Near syncope likely due to orthostatic and volume depletion. CT head negative. Symptomatically improved now Possible urinary tract infection History of bladder ring pessary placement Rheumatoid arthritis currently on immunosuppressant prednisone. Anxiety/depression DVT prophylaxis with heparin subcu Morbid obesity with BMI 49.8 Plan: Patient will be continued on gentle hydration. Continue with antibiotics as above ceftriaxone and follow-up urine culture reports. Continue with home medications and further recommendations based on the clinical course. Time with Patient: Greater than 30
[2019-08-18] MEDS: METOCLOPRAMIDE 5 MG/ML 2 ML VIAL IVP SCH ×2 (02:26→02:34)
[2019-08-18] MEDS: SODIUM CHLORIDE 0.9% 1,000 ML IV SCH ×2 (03:05→18:01)
[2019-08-18] MEDS ORDERED: METOCLOPRAMIDE 5 MG/ML 2 ML VIAL IVP PRN (03:16)
[2019-08-18] MEDS ORDERED: ASCORBIC ACID 500 MG TAB PO SCH (09:00)
[2019-08-18] MEDS ORDERED: FLUoxetine HCL 10 MG CAP PO SCH (09:00)
[2019-08-18] MEDS: PYRIDOXINE 50 MG TAB PO SCH (09:17)
[2019-08-18] MEDS: predniSONE 5 MG TAB PO SCH (09:18)
[2019-08-18] MEDS: CYANOCOBALAMIN 500 MCG TAB PO SCH (09:18)
[2019-08-18] MEDS: ASCORBIC ACID 500 MG TAB PO SCH (09:18)
[2019-08-18] MEDS: CHOLECALCIFEROL 1,000 UNIT TAB PO SCH (09:18)
[2019-08-18] MEDS: FOLIC ACID 1 MG TAB PO SCH (09:18)
[2019-08-18] MEDS ORDERED: ONDANSETRON 4 MG/2 ML VIAL IVP PRN (11:32)
[2019-08-18 15:53] LABS: T4, Free (Free Thyroxine) 1.06 ng/dL (0.78-2.19)
--- NOTE | 2019-08-18 20:07 | P.CNNES ---
History of Present Illness Consult date: 08/18/19 Requesting physician: Rima Donald Reason for Consult: Dizziness History of Present Illness: Patient is a 89-year-old female with history of rheumatoid arthritis, came to the hospital yesterday at 8 AM by ambulance for dizziness. Patient states that she woke up at 7 AM and felt dizzy, lightheaded. She tried to shake it off but persisted. When she tried to go to the bathroom, she felt very dizzy. Patient states that she fell on the floor and her helped her up from the floor. Patient's states that she did not fall onto the floor. He does remember getting her up from the toilet seat. Patient's feels that she just fell on the toilet seat, not on the floor. Patient's blood pressure on arrival was 177/93, pulse rate 64 temperature 98.3. Orthostatics were checked yesterday, and her supine blood pressure was 156/83, sitting was 175/97 and on standing was 192/97. Patient's blood pressure now seems to have improved. Patient believes she had a urine infection, as she has a bladder rating pessary, which seems to frequently come down and patient has to manually lift it up in order to assess urine. Patient feels that she may have developed urine infection. Patient denies any focal symptoms like numbness tingling, focal weakness, diplopia. She did have nausea yesterday and today. Patient was started on antibiotic. Just this evening the symptoms have completely resolved and she feels better. Patient never passed out. Patient underwent CT head, which showed no acute process. Mild chronic changes of chronic small vessel ischemic disease. However there is mild hydrocephalus. This may be secondary to ex vacuo enlargement from central cerebral atrophy. Correlate to exclude a component of NPH. Patient denies any history of dizziness. Patient has rheumatoid arthritis. Patient has intermittent tinnitus but not constant. She sometimes complains of pain in the left ear. She uses hearing aids and then hears well. Patient denies any history of upper respiratory infection in the last 6 months. Review of Systems Complains of dizziness, balance problem, urinary control problems. Denies chest pain shortness of breath wheezing or cough. Denies diplopia. Patient has arthritis. Please refer to HPI for details. All other negative. Patient does feel fatigued. Past Medical History Past Medical History: Rheumatoid Arthritis (RA) Additional Past Medical History / Comment(s): [place],"immune system low", hx previous injury to right wrist, has "bladder ring" pessary History of Any Multi-Drug Resistant Organisms: None Reported Past Surgical History: Appendectomy Additional Past Surgical History / Comment(s): 2018 BMA with bx Past Anesthesia/Blood Transfusion Reactions: No Reported Reaction Past Psychological History: Anxiety, Depression Smoking Status: Never smoker Past Alcohol Use History: None Reported Past Drug Use History: None Reported - Past Family History Mother Family Medical History: No Reported History Additional Family Medical History / Comment(s): Mother was healthy. She lived to be 99yrs old. Father History Unknown: Yes Additional Family Medical History / Comment(s): Pt did not know her father, he left when she was young. Medications and Allergies Home Medications Medication Instructions Recorded Confirmed Type Ascorbic Acid [Vitamin C] 500 mg PO DAILY 10/26/16 08/17/19 History Folic Acid 1 mg PO DAILY 10/26/16 08/17/19 History Pyridoxine HCl (Vitamin B6) 100 mg PO DAILY 10/26/16 08/17/19 History [Vitamin B-6] Cholecalciferol [Vitamin D3] 1,000 unit PO DAILY 10/07/17 08/17/19 History Ascorbic Acid [Vitamin C] 500 mg PO DAILY 08/17/19 08/17/19 History Cyanocobalamin [Vitamin B-12] 500 mcg PO DAILY 08/17/19 08/17/19 History FLUoxetine HCL [PROzac] 10 mg PO MOWEFR 08/17/19 08/17/19 History Lidocaine HCl [Aspercreme] 1 applic TOPICAL DAILY PRN 08/17/19 08/17/19 History predniSONE 5 mg PO DAILY 08/17/19 08/17/19 History Allergies Allergy/AdvReac Type Severity Reaction Status Date / Time fexofenadine [From Hanna] AdvReac fainting Verified 08/17/19 11:59 Physical Examination - Vital Signs Vital Signs: Vital Signs Temp Pulse Pulse Pulse Pulse Resp BP 08/18/19 12:00 64 57 L 60 58 L 16 08/18/19 08:00 98.0 F 64 57 L 60 58 L 16 08/18/19 03:14 97.8 F 64 57 L 60 50 L 14 08/18/19 00:00 98.0 F 53 L 16 08/17/19 20:00 97.8 F 57 L 15 08/17/19 16:00 98.1 F 60 18 08/17/19 13:28 98.0 F 64 18 171/83 BP Pulse Ox 08/18/19 12:00 08/18/19 08:00 131/74 97 08/18/19 03:14 143/69 97 08/18/19 00:00 157/82 97 08/17/19 20:00 161/75 96 08/17/19 16:00 137/74 95 08/17/19 13:28 97 Intake and Output 08/17/19 08/18/19 08/18/19 22:59 06:59 14:59 Intake Total 480 100 Output Total 300 300 300 Balance 180 -300 -200 Intake: Oral 480 100 Output: Urine 300 300 300 Other: Voiding Method Bedpan Bedpan Toilet Incontinent Incontinent Incontinent # Voids 1 1 1 On examination patient is an elderly female, in no acute distress. Patient is alert and awake fairly well oriented. Speech and language functions are normal. Attention and concentration fund of knowledge is adequate. On cranial nerve examination pupils are round and reactive to light, visual lópez are full on confrontation. Extraocular muscles are intact with no nystagmus. Face is symmetric, tongue protrudes the midline. Palatal elevation and sensation normal. Patient uses hearing aids. She can hear usual conversation well with her hearing aids. Shoulder shrug normal. On muscle strength testing there is no pronator drift and the strength is normal in arms and legs distally and proximally. Axillary 1+ and plantars downgoing. Sensory touch is equal. No ataxia for [id number] testing. Tone and bulk of muscles normal. Patient got up from the bed. She was very unsteady and would tend to lose balance to 1 or the other side or backwards. She walks with somewhat magnetic gait. There is no carotid bruit on either side. S1 and S2 audible. Peripheral pulses present. No edema. Chest is clear. Abdomen soft nontender. Results - Laboratory Findings CBC and BMP: 08/17/19 08:05 08/17/19 08:05 Abnormal Lab Findings: Abnormal Labs 08/17/19 08/17/19 08/17/19 08:05 08:05 10:23 WBC 2.1 L Plt Count 124 L Neutrophils # (Manual) 0.86 L Lymphocytes # (Manual) 0.92 L BUN 19 H Urine Appearance Cloudy H Urine Blood Small H Ur Leukocyte Esterase Small H Urine RBC 10 H Urine WBC 9 H Ur Squamous Epith Cells 45 H Urine Bacteria Moderate H Urine Mucus Rare H Assessment and Plan Assessment: * 89-year-old female admitted with episode of dizziness, lightheadedness. Patient's blood pressure was quite elevated 177/93 on arrival, and went up to 192/97 while checking orthostatics. Uncontrolled blood pressure could be contributing to the dizziness. Patient currently not on any antihypertensive medication. Differential diagnosis also includes possible TIA, versus peripheral vestibular dysfunction versus dizziness from questionable UTI. * Abnormal computed tomography scan of the head with evidence of possible hydrocephalus. Patient does have gait dysfunction, bladder dysfunction, which may be suggestive of normal pressure hydrocephalus. Patient denies any memory issues at all. * Hypothyroidism * Rheumatoid arthritis Plan: * Recommend follow-up blood pressure more closely. If the blood pressure is high, patient would need antihypertensive medication. * Patient's TSH is also abnormal, although Free T4 is normal. May need treatment with Synthroid, versus follow-up TFTs in 3 months. * Await B12, folate levels. RPR is negative. * Regarding abnormal computed tomography scan of the head, I discussed with the patient about possibility of normal pressure hydrocephalus. Patient does have gait dysfunction and problems with bladder control. I discussed about consideration for therapeutic lumbar puncture, to see if it helps with her gait and urine control issues. If it helps, then she could be a candidate for ventriculoperitoneal shunting. Patient and her believes that her balance has got worse since she has been in the hospital and because she is just laying in the bed. She does have balance issues but not "terrible". They will think about it. If the balance issue continues to be a problem, then they will follow up with neurosurgeon for further evaluation for possible NPH.
[2019-08-18] MEDS: amLODIPine 5 MG TAB PO SCH (23:31)
[2019-08-19] MEDS: SODIUM CHLORIDE 0.9% 1,000 ML IV SCH (04:24)
[2019-08-19 08:33] LABS: African American GFR (CKD) >90 (>60 ml/min/1.73 sqM); Anion Gap 5 mmol/L; Blood Urea Nitrogen 8 mg/dL (7-17); Calcium 8.8 mg/dL (8.4-10.2); Carbon Dioxide 26 mmol/L (22-30); Chloride 109 mmol/L (98-107); Glucose 128 mg/dL (74-99); Non-African American GFR(CKD) 80 (>60 ml/min/1.73 sqM); Potassium 3.7 mmol/L (3.5-5.1); Sodium 140 mmol/L (137-145)
[2019-08-19 08:35] LABS: Basophils % (A) 0 %; Eosinophils % (A) 1 %; HCT 38.9 % (34.0-46.0); HGB 13.1 gm/dL (11.4-16.0); Lymphocytes # (A) 0.5 k/uL (1.0-4.8); Lymphocytes % (A) 30 %; MCH 29.4 pg (25.0-35.0); MCHC 33.6 g/dL (31.0-37.0); MCV 87.4 fL (80.0-100.0); Monocytes # (A) 0.2 k/uL (0-1.0); Monocytes % (A) 11 %; Neutrophils # (A) 0.9 k/uL (1.3-7.7); Neutrophils % (A) 53 %; Platelet Count 139 k/uL (150-450); RBC 4.45 m/uL (3.80-5.40); RDW 13.8 % (11.5-15.5); WBC 1.8 k/uL (3.8-10.6)
[2019-08-19 08:41] VITALS: RESP 16
[2019-08-19] MEDS: FOLIC ACID 1 MG TAB PO SCH (08:47)
[2019-08-19] MEDS: predniSONE 5 MG TAB PO SCH (08:47)
[2019-08-19] MEDS: ASCORBIC ACID 500 MG TAB PO SCH (08:47)
[2019-08-19] MEDS: amLODIPine 5 MG TAB PO SCH (08:47)
[2019-08-19] MEDS: CYANOCOBALAMIN 500 MCG TAB PO SCH (08:47)
[2019-08-19] MEDS: CHOLECALCIFEROL 1,000 UNIT TAB PO SCH (08:47)
[2019-08-19] MEDS: PYRIDOXINE 50 MG TAB PO SCH (08:48)
[2019-08-19] MEDS ORDERED: PANTOPRAZOLE 40 MG/10 ML VIAL IVP SCH (09:00)
--- NOTE | 2019-08-19 10:39 | P.PN ---
Subjective Progress Note Date: 08/18/19 Principal diagnosis: Near syncope Urinary tract infection NPH Patient is a 89-year-old female with a known history of rheumatoid arthritis currently on prednisone, history of bladder ring pessary, leukemia with low white count, anxiety/depression presents to ER with complaints of lightheadedness and near syncope. Patient states that she got out of bed this morning and went to use the restroom where she felt very shaky and lightheaded. Denied any chest pain or shortness of breath. No nausea vomiting or abdominal pain or diarrhea. Patient symptoms improved over the next few minutes. Patient denies any fall or head injury. Denied any focal weakness. No confusion. Patient was brought to the hospital by her . Patient says that she felt like she was getting urinary tract infection. And is supposed to follow-up with her primary care physician in the next couple of days. No fever no chills. Denied any frequency of urination. [place] slight urgency. No dysuria. No abdominal pain. Denied any recent illnesses or sick contacts. No recent travel. CT head showed no acute intracranial abnormality. Mild chronic changes of chronic small vessel ischemic disease. However there is mild hydrocephalus. This may be secondary to ex vacuo enlargement from central cerebral atrophy. Correlate to exclude component of NPH. Laboratory data showed WBC 2.1, hemoglobin 13.0, platelets 124 BUN 19 and creatinine 0.67 Urinalysis showed cloudy with small leukocyte Estrace RBCs 10 and WBCs 9, septal cells 45 Patient is orthostatically positive on admission. 08/18/2019 Patient is currently lying in the bed comfortable. Awake alert oriented 3. Still complains of some dizziness. Patient is also having discomfort due to bladder pessary. Patient is being continued on antibiotics in the form of ceftriaxone for possible urinary tract infection positive follow-up urine culture reports. Neurology was consulted due to dizziness and abnormal CT head showing NPH. Patient is having dizziness and falls along with urinary incontinence.. Neurology recommends lumbar puncture to see it reduce her symptoms. If it reduced her symptoms patient may need [employer] INTER[employer] shunt and neurosurgery evolution. Added Norvasc for elevated blood pressure. Consider [employer] evaluation. Patient is supposed to follow with [employer] WORK[employer] for pessary ring removal today. Otherwise patient denied any complains of chest pain or shortness of breath. No fever no chills. No nausea vomiting or abdominal pain or diarrhea. Current medications reviewed. Objective - Vital Signs Vital signs: Vital Signs Temp 98.1 F 08/18/19 20:00 Pulse 52 L 08/18/19 20:00 Resp 18 08/18/19 20:00 BP 163/78 08/18/19 20:00 Pulse Ox 97 08/18/19 20:00 Intake & Output 08/18/19 08/18/19 08/19/19 06:59 18:59 06:59 Intake Total 480 322 Output Total 600 600 Balance -120 -278 Intake: Oral 480 322 Output: Urine 600 600 Other: Voiding Method Bedpan Toilet Toilet Incontinent Incontinent Incontinent # Voids 1 1 1 - Exam PHYSICAL EXAMINATION: Patient is lying in the bed comfortably, no acute distress, awake alert and oriented.. HEENT: Normocephalic. Neck is supple. Pupils reactive. Nostrils clear. Oral cavity is moist. Ears reveal no drainage. Neck reveals no JVD, carotid bruits, or thyromegaly. CHEST EXAMINATION: Trachea is central. Symmetrical expansion. Lung lópez clear to auscultation and percussion. CARDIAC: Normal S1, S2 with no gallops. No murmurs ABDOMEN: Soft. Bowel sounds normal. No organomegaly. No abdominal bruits. Extremities: reveal no edema. No clubbing or cyanosis Neurologically awake, alert, oriented x3 with well-coordinated movements. No focal deficits noted Skin: No rash or skin lesions. Psychiatric: Coperative. Nonsuicidal Musculoskeletal: No joint swelling or deformity. Normal range of motion. - Labs CBC & Chem 7: 08/19/19 07:55 08/19/19 07:55 Labs: Abnormal Lab Results - Last 24 Hours (Table) 08/17/19 Range/Units 08:05 TSH 7.240 H (0.465-4.680) mIU/L Microbiology - Last 24 Hours (Table) 08/17/19 10:23 Urine Culture - Preliminary Urine,Clean Catch Gram Neg Bacilli Assessment and Plan Assessment: Near syncope likely due to orthostatic and volume depletion. CT head negative. Symptomatically improved now Possible urinary tract infection Abnormal CT with possible hydrocephalus. Possible NPH. Frequent falls and urinary incontinence. Hypothyroidism Mild vascular dementia History of bladder ring pessary placement Rheumatoid arthritis currently on immunosuppressant prednisone. Anxiety/depression DVT prophylaxis with heparin subcu Morbid obesity with BMI 49.8 Plan: Patient will be continued on gentle hydration. Continue with antibiotics as above ceftriaxone and follow-up urine culture reports. Continue with home medications and further recommendations based on the clinical course. Patient may need lumbar puncture. Discussed with her and her at bedside. [employer] WORKER was consulted as well. Neurology is on board. * * Time with Patient: Greater than 30
[2019-08-19 11:41] VITALS: BP 142/77; PULSE 57; TEMP 97.6
--- NOTE | 2019-08-19 12:34 | P.OBCN ---
History of Present Illness Consult date: 08/19/19 Requesting physician: Rima Donald Reason for consult: other (Pessary issues) Chief complaint: Dizziness History of present illness: This is an 89-year-old female well known to me who presented to the emergency room with dizziness. She also thought she might have a urinary tract infection. She was having some pain when she initiated her urine stream. She was due to see me this past Wednesday in the office but instead came to the hospital. She has been seeing me every 6-8 weeks for pessary maintenance. She states that sometimes her pessary feels like it is dropping and she has to push it back up in with her fingers. This is been ongoing for some time however her pessary has been checked in the office and it is my feeling that a larger pessary would rub too much and cause bleeding. The patient is admitted and being treated for a urinary tract infection and also has been seen by neurology for her dizziness. Review of Systems Constitutional: Reports weakness, Denies chills, Denies fever Genitourinary: Reports dysuria, Reports prolapse symptoms, Reports stress incontinence, Reports urge incontinence, Reports urinary frequency Menstruation: Reports postmenopausal Past Medical History Past Medical History: Rheumatoid Arthritis (RA) Additional Past Medical History / Comment(s): [place],"immune system low", hx previous injury to right wrist, has a pessary for uterine and bladder prolapse History of Any Multi-Drug Resistant Organisms: None Reported Past Surgical History: Appendectomy Additional Past Surgical History / Comment(s): 2018 BMA with bx Past Anesthesia/Blood Transfusion Reactions: No Reported Reaction Past Psychological History: Anxiety, Depression Smoking Status: Never smoker Past Alcohol Use History: None Reported Past Drug Use History: None Reported - Past Family History Mother Family Medical History: No Reported History Additional Family Medical History / Comment(s): Mother was healthy. She lived to be 99yrs old. Father History Unknown: Yes Additional Family Medical History / Comment(s): Pt did not know her father, he left when she was young. Medications and Allergies Home Medications Medication Instructions Recorded Confirmed Type Ascorbic Acid [Vitamin C] 500 mg PO DAILY 10/26/16 08/17/19 History Folic Acid 1 mg PO DAILY 10/26/16 08/17/19 History Pyridoxine HCl (Vitamin B6) 100 mg PO DAILY 10/26/16 08/17/19 History [Vitamin B-6] Cholecalciferol [Vitamin D3] 1,000 unit PO DAILY 10/07/17 08/17/19 History Ascorbic Acid [Vitamin C] 500 mg PO DAILY 08/17/19 08/17/19 History Cyanocobalamin [Vitamin B-12] 500 mcg PO DAILY 08/17/19 08/17/19 History FLUoxetine HCL [PROzac] 10 mg PO MOWEFR 08/17/19 08/17/19 History Lidocaine HCl [Aspercreme] 1 applic TOPICAL DAILY PRN 08/17/19 08/17/19 History predniSONE 5 mg PO DAILY 08/17/19 08/17/19 History Allergies Allergy/AdvReac Type Severity Reaction Status Date / Time fexofenadine [From Hanna] AdvReac fainting Verified 08/17/19 11:59 Exam Osteopathic Statement: *. No significant issues noted on an osteopathic structural exam other than those noted in the History and Physical/Consult. Vital Signs Temp Pulse Pulse Pulse Pulse Pulse Resp 08/19/19 11:37 97.6 F 57 L 16 08/19/19 08:37 97.4 F L 56 L 16 08/19/19 04:00 97.8 F 52 L 18 08/19/19 00:00 97.6 F 52 L 18 08/18/19 20:00 98.1 F 52 L 18 08/18/19 16:00 97.6 F 64 57 L 60 52 L 16 BP BP Pulse Ox 08/19/19 11:37 142/77 97 08/19/19 08:37 134/84 97 08/19/19 04:00 146/71 95 08/19/19 00:00 155/77 98 08/18/19 20:00 163/78 97 08/18/19 16:00 155/79 98 Intake and Output 08/18/19 08/19/19 08/19/19 22:59 06:59 14:59 Intake Total 222 240 Output Total 300 Balance -78 240 Intake: Oral 222 240 Output: Urine 300 Other: Voiding Method Toilet Toilet Toilet Incontinent Incontinent Incontinent # Voids 1 1 - OBG Physical Exam Vagina: rectocele, cystocele Cervix: discharge (Scant white/yellow discharge, non-malodorous), no friable Uterus: Uterus with complete procidentia Results Result Diagrams: 08/19/19 07:55 08/19/19 07:55 Abnormal Lab Results - Last 24 Hours (Table) 08/17/19 08/19/19 08/19/19 Range/Units 08:05 07:55 07:55 WBC 1.8 L (3.8-10.6) k/uL Plt Count 139 L (150-450) k/uL Neutrophils # 0.9 L (1.3-7.7) k/uL Lymphocytes # 0.5 L (1.0-4.8) k/uL Chloride 109 H (98-107) mmol/L Glucose 128 H (74-99) mg/dL TSH 7.240 H (0.465-4.680) mIU/L Microbiology - Last 24 Hours (Table) 08/17/19 10:23 Urine Culture - Preliminary Urine,Clean Catch Gram Neg Bacilli Assessment and Plan (1) Pessary maintenance Current Visit: Yes Status: Acute Code(s): Z46.89 - ENCOUNTER FOR FITTING AND ADJUSTMENT OF OTH DEVICES SNOMED Code(s): 158594980 (2) Uterine procidentia Current Visit: Yes Status: Acute Code(s): N81.3 - COMPLETE UTEROVAGINAL PROLAPSE SNOMED Code(s): 26048127 Plan: I removed her pessary, we cleaned it with warm soapy water, and I replaced it. It feels like it is fitting well underneath the pubic symphysis. No abnormal discharges seen. She is instructed to follow-up in the office with me in approximately 6 weeks for another pessary check and cleaning. Agree with treatment of urinary tract infection. Thank you very much for this consul tation.
[2019-08-19 23:58] LABS: Folate, Serum 21.5 ng/mL
== END 2019-08-19 14:35 | disposition home or self-care (01) | DRG 312 ==
LOC: EC 07:55 → 1SOBS 12:04 → OBSVTOIN 08-19 08:40
PROVIDERS: ADMIT Internal Medicine; ATTEND Internal Medicine
DX: I95.1 Orthostatic hypotension (principal); Z68.42 Body mass index [BMI] 45.0-49.9, adult; G91.9 Hydrocephalus, unspecified; N39.0 Urinary tract infection, site not specified; Z11.59 Encounter for screening for other viral diseases; F01.50 Vascular dementia, unspecified severity, without behavioral disturbance, psychotic disturbance, mood disturbance, and anxiety; E66.01 Morbid (severe) obesity due to excess calories; M06.9 Rheumatoid arthritis, unspecified; G31.9 Degenerative disease of nervous system, unspecified; E86.9 Volume depletion, unspecified; F41.9 Anxiety disorder, unspecified; F32.9 Major depressive disorder, single episode, unspecified; H93.19 Tinnitus, unspecified ear; Z96.0 Presence of urogenital implants; E03.9 Hypothyroidism, unspecified; N39.3 Stress incontinence (female) (male); N81.3 Complete uterovaginal prolapse; R29.6 Repeated falls; H92.02 Otalgia, left ear; R03.0 Elevated blood-pressure reading, without diagnosis of hypertension; Z79.899 Other long term (current) drug therapy; Z79.52 Long term (current) use of systemic steroids; Z87.828 Personal history of other (healed) physical injury and trauma; Z85.6 Personal history of leukemia; Z90.49 Acquired absence of other specified parts of digestive tract; Z46.89 Encounter for fitting and adjustment of other specified devices; Z88.8 Allergy status to other drugs, medicaments and biological substances
CPT/HCPCS: 36415; 70450; 80048; 80053; 81001; 82607; 82746; 84439; 84443; 85025; 86780; 87077; 87086; 87186; 93005; 96361; 96374; 99285